=== PATIENT | female | born 1970 | race Caucasian/White ===

== ENCOUNTER 2018-05-29 14:17 | Emergency (ER) | payer MEDICAID ==
[~2018-05-29] VITALS: Ht 149.9 cm; Wt 72.1 kg
[2018-05-29 14:25] VITALS: BP 161/92
--- NOTE | 2018-05-29 14:57 | NUR ---
PT C/O PAIN ON THE BACK/SHOULDER/CHEST/ABDOMEN X 2 DAYS; DENIES N/V/D. VSS; PATIENT POSITIONED FOR COMFORT; HOB ELEVATED; BEDRAILS UP X1; BED DOWN. ER MD MADE AWARE OF PT STATUS.
[2018-05-29] MEDS ORDERED: KETOROLAC 60 MG/2 ML VIAL IM ONE (15:40)
[2018-05-29] MEDS ORDERED: DICYCLOMINE HCL LIQUID 20 MG, ALUMINUM HYD/MAG/SIMETHICONE 30 ML, LIDOCAINE VISCOUS 2% ... PO ONE ×3 (15:40)
[2018-05-29 16:09] VITALS: BP 157/89
--- NOTE | 2018-05-29 16:09 | NUR ---
Patient discharged with v/s stable. Written and verbal after care instructions given and explained. Patient alert, oriented and verbalized understanding of instructions. Ambulatory with steady gait. All questions addressed prior to discharge. ID band removed. Patient advised to follow up with PMD. Rx of PRILOSEC AND MOTRIN given. Patient educated on indication of medication including possible reaction and side effects. Opportunity to ask questions provided and answered.
== END 2018-05-29 16:09 | disposition home or self-care (01) ==
LOC: MED 14:17
DX: R10.13 Epigastric pain (principal); R51 Headache; R19.7 Diarrhea, unspecified
CPT/HCPCS: 71046; 81002; 81025; 96372; 99284; J1885